=== PATIENT | female | born 1945 | race Caucasian/White ===

== ENCOUNTER 2018-10-07 13:55 | Emergency (ER) | payer MEDICARE ==
[2018-10-07 14:35] VITALS: BP 162/75
[2018-10-07] MEDS ORDERED: Albuterol 2.5 MG/3 ML NEB.SOL* (0.083%) INH ONE (15:31)
[2018-10-07] MEDS ORDERED: predniSONE TAB* 20 MG PO ONE (16:02)
[2018-10-07] MEDS ORDERED: Albuterol/Ipratropium NEB.SOL* Albuterol 2.5 MG/Ipratropium 0.5 MG 3 ML INH ONE (16:02)
--- NOTE | 2018-10-07 16:55 | UC ---
Respiratory Complaint HPI - HPI Summary HPI Summary: 73-year-old female presents with complaints of wheezing. States she has had some nasal congestion for the past several days but over the last 3 days has been noticing some progressively worsening wheezing. Occasional nonproductive cough No history of asthma or COPD. Denies fever, chills, ear pain, sore throat , chest pain, palpitations, diaphoresis, shortness of breath, nausea, or vomiting. - History of Current Complaint Chief Complaint: UCRespiratory Stated Complaint: WEEZINGCHEST CONGESTION Time Seen by Provider: 10/07/18 15:26 Hx Obtained From: Patient Pain Intensity: 3 - Allergies/Home Medications Allergies/Adverse Reactions: Allergies Allergy/AdvReac Type Severity Reaction Status Date / Time shellfish derived Allergy Severe Vomiting Verified 10/07/18 14:35 phenobarbital Allergy Agitation Verified 10/07/18 14:35 Home Medications: Home Medications Aspirin 81 mg PO DAILY 10/07/18 [History Confirmed 10/07/18] Aspirin 325 mg PO ONCE PRN 10/07/18 [History Confirmed 10/07/18] Calcium Carb/Vitamin D3/Vit K1 [Calcium + D Soft Chewable Tab] 1 tab PO DAILY [History Confirmed 10/07/18] Cyanocobalamin (Vitamin B-12) [Vitamin B12] 200 mg PO DAILY 10/07/18 [History Confirmed 10/07/18] Fluticasone Propionate [Flonase Allergy Relief] 1 spray INH DAILY 10/07/18 [ History Confirmed 10/07/18] Rosuvastatin Calcium [Crestor] 5 mg PO DAILY 10/07/18 [History Confirmed ] Ubidecarenone [Coq-10] 200 mg PO DAILY 10/07/18 [History Confirmed 10/07/18] guaiFENesin [Mucinex] 1 tab PO DAILY 10/07/18 [History Confirmed 10/07/18] PMH/Surg Hx/FS Hx/Imm Hx Endocrine History: Dyslipidemia Cardiovascular History: Cardiac Disease, Hypertension, Other - Valvular disease - Surgical History Surgical History: Yes Surgery Procedure, Year, and Place: valve replacement - Family History Known Family History: Positive: Non-Contributory - Social History Occupation: Retired Lives: With Family Alcohol Use: Occasionally Substance Use Type: None Smoking Status (MU): Never Smoked Tobacco Review of Systems All Other Systems Reviewed And Are Negative: Yes Constitutional: Negative: Fever, Chills Eyes: Negative: Drainage, Eye Redness ENT: Positive: Nasal Discharge, Sinus Congestion. Negative: Sore Throat, Ear Ache, Sinus Pain/Tenderness Respiratory: Positive: Cough. Negative: Shortness Of Breath Cardiovascular: Negative: Palpitations, Chest Pain Gastrointestinal: Negative: Abdominal Pain, Vomiting, Diarrhea, Nausea Genitourinary: Positive: Negative Musculoskeletal: Positive: Negative Neurological: Positive: Negative Is Patient Immunocompromised?: No Physical Exam - Summary Physical Exam Summary: GENERAL APPEARANCE: Alert and cooperative older adult female who appears to be in no acute distress. EYES: Conjunctiva clear. No drainage. EARS: External auditory canals and tympanic membranes clear, hearing grossly intact. NOSE: Moderate nasal congestion. No nasal discharge. THROAT: Pharynx normal. No tonsilar inflammation, swelling, exudate, or lesions. Uvula midline. NECK: Neck supple, non-tender without lymphadenopathy. CARDIAC: Normal S1 and S2. No S3, S4 or murmurs. Rhythm is regular. There is no peripheral edema, cyanosis or pallor. Extremities are warm and well perfused. Capillary refill is less than 2 seconds. Peripheral pulses intact. LUNGS: Diffuse bilateral wheezes with diminished breath sounds. ABDOMEN: Positive bowel sounds. Soft, nondistended, nontender. No guarding or rebound. No masses or hepatosplenomegally. MUSKULOSKELETAL: ROM intact to all extremities. No joint erythema or tenderness. Normal muscular development. Normal gait. SKIN: Skin normal color, texture and turgor with no lesions or eruptions. Triage Information Reviewed: Yes Vital Signs: Initial Vital Signs Temp 99 F 10/07/18 14:29 Pulse 73 10/07/18 14:29 Resp 18 10/07/18 14:29 BP 162/75 10/07/18 14:29 Pulse Ox 100 10/07/18 14:29 Vital Signs Reviewed: Yes Re-Evaluation - Re-Evaluation First Eval Re-Evaluation Time: 16:55 Change: Improved Comment: Patient reports breathing a little easier after the albuterol nebulizer. Continues to have diffuse bilateral wheezes throughout all stewart. Air exchange slightly improved. Jaspreet give second nebulizer treatment and a dose of prednisone. Second Eval Re-Evaluation Time: 16:45 Change: Improved Comment: Patient reports feels much better after second neb treatment. Continues to have a few scattered wheezes bilaterally. Air exchange much improved. Cough more productive. Will d/c home with antibiotics, short course prednisone, an albuterol inhaler, and cough suppressant. Respiratory Course/Dx - Course Course Of Treatment: 73-year-old female presents with complaints of wheezing. States she has had some nasal congestion for the past several days but over the last 3 days has been noticing some progressively worsening wheezing. Occasional nonproductive cough No history of asthma or COPD. Denies fever, chills, ear pain, sore throat , chest pain, palpitations, diaphoresis, shortness of breath, nausea, or vomiting. Afebrile. Hypertensive otherwise been stable. Patient had moderate nasal congestion and diffuse bilateral wheezes with diminished breath sounds. She was given an albuterol breathing treatment with some improvement in her symptoms however she continued to have diffuse wheezes therefore she was given a second DuoNeb treatment as well as a dose of prednisone 60 mg. Following the second nebulizer treatment the patient is reporting she was feeling much better. She continued to have a few scattered wheezes bilaterally but had much improved air exchange. With progressively worsening symptoms and development of wheezing I'm going to place her on an antibiotic for a URI. She was prescribed a course of azithromycin and given a prescription for prednisone 50 mg daily for 4 days starting tomorrow, and albuterol inhaler to use 2 puffs every 4-6 hours as needed for wheezing, and Tessalon Perles as needed for cough. She is to follow-up with her primary care provider in 5 days for recheck for symptoms. Anticipatory guidance and warning symptoms were reviewed with the patient. Verbalizes understanding and agrees with plan of care. - Differential Dx/Diagnosis Differential Diagnosis/HQI/PQRI: Bronchitis, Lower Resp Infection, Other - URI, RAD Provider Diagnosis: URI with cough and congestion, Reactive airway disease that is not asthma Discharge - Sign-Out/Discharge Documenting (check all that apply): Patient Departure All imaging exams completed and their final reports reviewed: No Studies - Discharge Plan Condition: Stable Disposition: HOME Prescriptions: Albuterol HFA INHALER* [Ventolin HFA Inhaler*] 2 puff INH Q4H PRN #1 mdi PRN Reason: Wheezing Azithromycin TAB* [Zithromax TAB (Z-CARMELA) 250 mg #6 tabs] 2 tab PO .TODAY, THEN 1 DAILY #1 carmela Benzonatate CAP* [Tessalon 100 MG CAP*] 100 mg PO TID PRN #21 cap PRN Reason: Cough predniSONE TAB* [Deltasone TAB*] 50 mg PO DAILY #4 tab Patient Education Materials: Upper Respiratory Infection (ED), Wheezing (ED) Referrals: Brown Donis, ANALYTICAL RESEARCH PROGRAM MANAGER [Primary Care Provider] - 5 Days Additional Instructions: Your history and exam are consistent with an upper respiratory infection. Considering the worsening of your symptoms we will treat you with an antibiotic. Start azithromycin 2 tabs today then 1 tab a day for next 4 days. Take prednisone 50 mg 1 tab daily for 4 days starting tomorrow. We gave you a dose in the clinic. Use the albuterol inhaler 2 puffs every 4-6 hours as needed for shortness of breath or wheezing. Take Tessalon Perles 1 cap every 8 hours as needed for cough. Continue to use fluticasone (Flonase) nasal spray 2 sprays each nostril once daily. Take over the counter acetaminophen (Tylenol) according to directions as needed for pain or fever. Use salt water gargles several times a day if you have a sore throat. You may also use Chloraseptic spray or Cepacol lonzenges according to directions which contain a numbing medication and can provide some temporary relief from your sore throat. Follow up with your primary care provider in 5 days for a recheck of your symptoms. Seek immediate medical attention in the emergency room if you have fever greater than 100.5 F despite taking acetaminophen, have chest pain, difficulty breathing, are unable to swallow, or have any worsening of symptoms. - Billing Disposition and Condition Condition: STABLE Disposition: Home - Attestation Statements Provider Attestation: Per institutional requirements, I have reviewed the chart, however, I was not consulted specifically or made aware of this patient by the midlevel provider. I did not personally evaluate, interact with , or disposition this patient.
== END 2018-10-07 17:10 | disposition home or self-care (01) ==
LOC: UCEAST 13:55
DX: J06.9 Acute upper respiratory infection, unspecified (principal); R05 Cough; R09.81 Nasal congestion; E78.5 Hyperlipidemia, unspecified; Z95.2 Presence of prosthetic heart valve; Z79.82 Long term (current) use of aspirin; Z88.8 Allergy status to other drugs, medicaments and biological substances; Z91.013 Allergy to seafood
CPT/HCPCS: 99213; A9270-GY; G0463; J7512

== ENCOUNTER 2019-05-08 16:01 | Emergency (ER) | payer MEDICARE ==
[2019-05-08 17:00] VITALS: BP 131/50
--- NOTE | 2019-05-08 17:02 | UC ---
Epistaxis Nasal HPI - HPI Summary HPI Summary: 73 yo female presents with head injury. She tells me that she had her hands full carrying in boxes to her house. She missed a step and tripped going forward. Landed on her knee and hit her face and left side of her head against a wall or railing nearby - unsure exactly what. No LOC. Ambulatory immediately following. Small abrasion to nose that was bleeding. States that tetanus is UTD. Has applied ice to the nose. Noticed a "goose-egg" to left frontal head while in the waiting room here. Currently denies headache, dizziness, difficulty breathing through nose, neck pain, vision change, n/v. - History of Current Complaint Chief Complaint: UCSkin Stated Complaint: NOSE INJURY Time Seen by Provider: 05/08/19 17:02 Hx Obtained From: Patient Onset/Duration: Sudden Onset Severity Initially: Moderate Severity Currently: Moderate Pain Intensity: 6 - Allergies/Home Medications Allergies/Adverse Reactions: Allergies Allergy/AdvReac Type Severity Reaction Status Date / Time shellfish derived Allergy Severe Vomiting Verified 05/08/19 17:00 phenobarbital Allergy Agitation Verified 05/08/19 17:00 PMH/Surg Hx/FS Hx/Imm Hx - Additional Past Medical History Additional PMH: Heart valve replacement Endocrine History: Dyslipidemia Respiratory History: Asthma - Surgical History Surgical History: Yes Surgery Procedure, Year, and Place: valve replacement - Family History Known Family History: Positive: Non-Contributory - Social History Lives: With Family Alcohol Use: Occasionally Substance Use Type: None Smoking Status (MU): Never Smoked Tobacco Review of Systems All Other Systems Reviewed And Are Negative: No Constitutional: Positive: Negative Skin: Positive: Other - Abrasion nose. Bump head Eyes: Positive: Negative ENT: Positive: Negative Respiratory: Positive: Negative Cardiovascular: Positive: Negative Gastrointestinal: Positive: Negative Genitourinary: Positive: Negative Motor: Positive: Negative Neurovascular: Positive: Negative Musculoskeletal: Positive: Negative Neurological: Positive: Negative Psychological: Positive: Negative Physical Exam - Summary Physical Exam Summary: GENERAL: NAD. WDWN. No pain distress. SKIN: NOSE: small superficial abrasion to nasal bridge. No active bleeding. Clean appearing. NTTP HEENT: Head: No raccoon eyes or battles sign. LEFT FRONTAL HEAD: 2.5cm area of hematoma and scant ecchymosis. Eyes: PERRLA. EOM intact. Ears: Hearing grossly normal. TMs intact, no bulging, erythema, or edema. No hemotympanum Nose: Nasal mucosa pink and moist. NTTP maxillary and frontal sinus. Throat: Posterior oropharynx without exudates, erythema, or tonsillar enlargement. Uvula midline. NECK: Supple. Nontender. FROM CHEST: CTAB. No r/r/w. No accessory muscle use. Breathing comfortably and in no distress. CV: RRR. Pulses intact. Brisk cap refill. MSK: FROM in B/L UEs and LEs with symmetric strength. NEURO: A&Ox3. 3 word recall, remote, recent memory, ability to follow 2-step directions, and attention intact. CN: II: Peripheral stewart intact. Vision normal. III, IV, : EOMI. No nystagmus. PERRLA. V: Sensations intact and symmetric. Opens mouth and clenches teeth. VII: No facial asymmetry. Forehead wrinkles. Grins, shuts eyes, frowns, puffs cheeks. VIII: Hearing intact to finger rub. IX, X: Swallows and coughs. Uvula midline. XI: Shrugs shoulders. Turns head against resistance. XII: No tongue deviation [id number]-ir-[id number] are intact. Gait with normal base. Romberg: maintains balance, no pronator drift. Normal speech. No facial drooping. PSYCH: Age appropriate behavior. Triage Information Reviewed: Yes Vital Signs: Initial Vital Signs Temp 97.0 F 05/08/19 16:55 Pulse 79 05/08/19 16:55 Resp 18 05/08/19 16:55 BP 131/50 05/08/19 16:55 Pulse Ox 100 05/08/19 16:55 Vital Signs Reviewed: Yes Diagnostics - Radiology Brain CT Radiology Interpretation Completed By: Radiologist Summary of Radiographic Findings: IMPRESSION: 1. NO EVIDENCE FOR ACUTE INTRACRANIAL ABNORMALITY. 2. PROBABLE FRACTURE OF THE LEFT NASAL BONE. Epistaxis Nasal Course/Dx - Course Course Of Treatment: Abrasion was cleansed with saline. CT as above. Discussed with pt and daughter with her. Advised to rest, ice, and take tylenol as directed for discomfort. Go to ED if experiences any red flag symptoms. - Differential Dx/Diagnosis Provider Diagnosis: Head injury Discharge ED - Sign-Out/Discharge Documenting (check all that apply): Patient Departure All imaging exams completed and their final reports reviewed: Yes - Discharge Plan Condition: Stable Disposition: HOME Patient Education Materials: Nasal Fracture (ED), Head Injury (ED) Referrals: Brown Donis NP [Primary Care Provider] - Additional Instructions: If you develop a fever, shortness of breath, chest pain, new or worsening symptoms - please call your PCP or go to the ED immediately. Rest and apply ice to your nose and head. May take tylenol as directed for discomfort. If you develop a severe headache, vision changes, nausea, vomiting, numbness, or weakness - please call 911 or go to the ER immediately - Billing Disposition and Condition Condition: STABLE Disposition: Home
== END 2019-05-08 18:20 | disposition home or self-care (01) ==
LOC: UCEAST 16:01
DX: S09.90XA Unspecified injury of head, initial encounter (principal); S00.31XA Abrasion of nose, initial encounter; J45.909 Unspecified asthma, uncomplicated; Z95.2 Presence of prosthetic heart valve; Z91.013 Allergy to seafood; Z88.8 Allergy status to other drugs, medicaments and biological substances; W01.198A Fall on same level from slipping, tripping and stumbling with subsequent striking against other object, initial encounter; Y92.009 Unspecified place in unspecified non-institutional (private) residence as the place of occurrence of the external cause
CPT/HCPCS: 70450; 99212; G0463

== ENCOUNTER 2019-12-09 16:35 | Inpatient (IN) ==
[2019-12-09] MEDS ORDERED: NS 0.9% 1000 ml BAG 1,000 ML IV ONE (16:44)
[2019-12-09 17:12] LABS: Hematocrit 23 % (35-47); Hemoglobin 6.6 g/dL (12.0-16.0); Mean Corpuscular HGB Conc 28 g/dL (31-36); Mean Corpuscular Hemoglobin 19 pg (27-31); Mean Corpuscular Volume 66 fL (80-97); Mean Platelet Volume 8.8 fL (7.4-10.4); Platelet Count 234 10^3/uL (150-450); Red Blood Count 3.53 10^6 /uL (3.70-4.87); Red Cell Distribution Width 25 % (10-15)
[2019-12-09 17:16] LABS: ALT 329 U/L (7-52); AST 361 U/L (13-39); Alkaline Phosphatase 128 U/L (34-104); Anion Gap 11 mmol/L (2-11); Blood Urea Nitrogen 30 mg/dL (6-24); CO2 Carbon Dioxide 17 mmol/L (22-32); Calcium 9.1 mg/dL (8.6-10.3); Chloride 98 mmol/L (101-111); Creatine Kinase 105 U/L (10-223); EGFR African American 60.8 (>60); EGFR Non-African American 50.3 (>60); Glucose 173 mg/dL (70-100); Potassium 4.5 mmol/L (3.5-5.0); Sodium 126 mmol/L (135-145)
[2019-12-09] MEDS ORDERED: Piperacillin/Tazobac ADVAN 3.375 GM in NS 0.9% 100 ml BAG 100 ML IVPB ONE (17:25)
[2019-12-09 17:33] LABS: Troponin I 0.26 ng/mL (<0.03)
[2019-12-09 17:34] LABS: Urine Appearance Cloudy; Urine Bilirubin Negative (Negative); Urine Blood 3+ (Negative); Urine Color Amber; Urine Glucose Negative (Negative); Urine Ketones Negative (Negative); Urine Nitrite Negative (Negative); Urine Protein 1+(30 mg/dL) (Negative); Urine Specific Gravity 1.019 (1.010-1.030); Urine Urobilinogen Negative (Negative)
[2019-12-09 17:34] LABS: ABS Basophils 0.1 10^3/ul (0-0.2); ABS Monocytes 0.6 10^3/ul (0-0.8); ABS Neutrophils 15.3 10^3/ul (1.5-7.7); ABS Nucleated RBC 0.1 10^3/ul; Eosinophil % 0.1 %; Nucleated Red Blood Cells % 0.7
[2019-12-09 17:36] LABS: Microcytosis 2+; Polychromasia 2+
[2019-12-09 17:39] LABS: Urine Bacteria Absent (Absent); Urine Granular Casts Present (Absent); Urine Red Blood Cell 2+(6-10/hpf) (Absent); Urine White Blood Cell Trace(0-5/hpf) (Absent)
[2019-12-09] MEDS ORDERED: NS 0.9% 1000 ml BAG 2,180 ML IV ONE (17:45)
[2019-12-09] MEDS ORDERED: Vancomycin 1,250 MG in NS 0.9% 250 ml 250 ML IVPB ONE (18:00)
[2019-12-09 18:05] LABS: Acetaminophen < 15 mcg/mL
[2019-12-09] MEDS ORDERED: Propofol 10 mg/ml 100 ML BTL 100 ML IV ONE (18:48)
[2019-12-09] MEDS ORDERED: Etomidate 20 mg/10 ml 2 MG/ML 10 ml VIAL IV ONE ×2 (18:49→19:44)
[2019-12-09] MEDS ORDERED: Succinylcholine 200 mg VIAL 20 mg/ml 10 ml VIAL (200 mg) IV ONE ×2 (18:49→19:44)
[2019-12-09] MEDS ORDERED: Etomidate 40 mg/20 ml (2 MG/ML) 20 ml VIAL (40 mg) ONE (19:09)
[2019-12-09] MEDS ORDERED: Rocuronium 50 mg VIAL 10 mg/ml 5 ml VIAL (50 mg) IV ONE (19:12)
[2019-12-09] MEDS ORDERED: Rocuronium 50 mg VIAL 10 mg/ml 5 ml VIAL (50 mg) ONE (19:15)
[2019-12-09] MEDS ORDERED: Succinylcholine 200 mg VIAL 20 mg/ml 10 ml VIAL (200 mg) ONE (19:15)
[2019-12-09] MEDS: Midazolam 2 mg/2 ml VIAL 1 mg/ml 2 ml VIAL (2 mg) IV SLOW PU ONE ×3 (19:35→20:40)
[2019-12-09] MEDS ORDERED: Propofol 10 mg/ml 100 ML BTL 100 ML IV SCH (20:00)
[2019-12-09] MEDS ORDERED: NS 0.9% 1000 ml BAG 1,000 ML IV SCH (20:00)
[2019-12-09] MEDS ORDERED: Midazolam 2 mg/2 ml VIAL 1 mg/ml 2 ml VIAL (2 mg) IV SLOW PU ONE (20:26)
[2019-12-09] MEDS ORDERED: Iodixanol (CONTRAST) 320 MG/ML 100 ML SDV IV ONE (20:28)
[2019-12-09] MEDS ORDERED: Norepinephrine 16MCG/ML IVPRE 4,000 MCG/250 ML BAG IV ONE (20:32)
[2019-12-09] MEDS: Norepinephrine 16MCG/ML IVPRE 4,000 MCG/250 ML BAG IV SCH (20:37)
[2019-12-09 21:26] LABS: ABS Monocytes 0.6 10^3/ul (0-0.8); ABS Neutrophils 15.7 10^3/ul (1.5-7.7); ABS Nucleated RBC 0.2 10^3/ul; Hematocrit 20 % (35-47); Hemoglobin 5.8 g/dL (12.0-16.0); Lymphocyte % 5.6 %; Mean Corpuscular HGB Conc 29 g/dL (31-36); Mean Corpuscular Hemoglobin 19 pg (27-31); Mean Corpuscular Volume 65 fL (80-97); Mean Platelet Volume 8.5 fL (7.4-10.4); Platelet Count 252 10^3/uL (150-450); Red Blood Count 3.01 10^6 /uL (3.70-4.87); Red Cell Distribution Width 23 % (10-15); White Blood Count 17.7 10^3/uL (3.5-10.8)
[2019-12-09 21:31] LABS: INR 1.63 (0.82-1.09)
[2019-12-09 21:40] LABS: AST 766 U/L (13-39); Albumin 2.7 g/dL (3.2-5.2); Alkaline Phosphatase 167 U/L (34-104); Anion Gap 9 mmol/L (2-11); BUN/Creatinine Ratio 28.1 (8-20); Blood Urea Nitrogen 32 mg/dL (6-24); CO2 Carbon Dioxide 21 mmol/L (22-32); Calcium 8.4 mg/dL (8.6-10.3); Chloride 98 mmol/L (101-111); EGFR African American 56.5 (>60); EGFR Non-African American 46.7 (>60); Globulin 2.6 g/dL (2-4); Glucose 182 mg/dL (70-100); Potassium 4.2 mmol/L (3.5-5.0); Sodium 128 mmol/L (135-145); Total Protein 5.3 g/dL (6.4-8.9)
[2019-12-09] MEDS ORDERED: Phytonadione IV (Adult) 10 MG/ML 1 ML AMP IV ONE (21:48)
[2019-12-09 21:56] LABS: Troponin I 0.34 ng/mL (<0.03)
[2019-12-09] MEDS ORDERED: Lactated Ringers 1000 ml BAG 500 ML IV ONE (22:13)
[2019-12-09] MEDS: Propofol 10 mg/ml 100 ML BTL 100 ML IV SCH (22:29)
[2019-12-09 22:47] LABS: Ammonia 62 mcmol/L (16-53)
[2019-12-09 22:53] LABS: BNP > 1300 pg/mL (<=100)
[2019-12-09] MEDS: Lactated Ringers 1000 ml BAG 1,000 ML IV SCH (22:55)
[2019-12-09] MEDS ORDERED: Amikacin IV 500 MG/2 ML VIAL IVPB ONE (22:59)
[2019-12-09] MEDS ORDERED: Phytonadione 10 mg in 50 mL NS over 30 min IV ONE (23:00)
[2019-12-09 23:27] LABS: ALT 663 U/L (7-52)
[2019-12-09] MEDS ORDERED: GENTAMICIN ADULT IVPB ONE (23:30)
[2019-12-09] MEDS ORDERED: NS 0.9% IVPB ONE (23:30)
[2019-12-09 23:52] LABS: Corrected Retic Count 2.5 % (0.5-1.5); Hematocrit for Retic CNT 20 % (35-47); Immature Retic Fraction 0.62; RBC Retic Count 3.01 10^6/uL (3.70-4.87)
[2019-12-10] MEDS: Chlorhexidine MOUTHWASH 0.12% 15 ML UDC SWISH SPIT SCH ×7 (00:01→21:09)
[2019-12-10 00:02] LABS: LDH 1175 U/L (140-271); Total Iron Binding Capacity 325 mcg/dL (250-450); Transferrin 232 mg/dL (203-362)
[2019-12-10] MEDS: ZOSYN 3.375 GM Q8H per EXTENDED INFUSION IV SCH ×4 (00:02→21:09)
[2019-12-10 00:29] LABS: Ferritin 37.8 ng/mL (11-307)
[2019-12-10 00:33] LABS: Folate > 20.00 ng/mL (>3.99); Vitamin B12 1367 pg/mL (180-914)
[2019-12-10 00:34] LABS: % Iron Saturation 6 % (15-55); Iron < 20 ug/dL (50-212); Unsaturated Iron Binding < 310 ug/dL
[2019-12-10] MEDS ORDERED: Pantoprazole VIAL 40 MG VIAL IV ONE (01:00)
[2019-12-10] MEDS: Lactated Ringers 1000 ml BAG 1,000 ML IV SCH ×2 (04:04→18:11)
[2019-12-10] MEDS: Propofol* 20 ML VIAL - FOR IV LINE PRIMING ONLY SCH ×3 (05:39→21:09)
[2019-12-10] MEDS: Propofol 10 mg/ml 100 ML BTL 100 ML IV SCH ×2 (05:39→21:09)
[2019-12-10] MEDS: Norepinephrine 16MCG/ML IVPRE 4,000 MCG/250 ML BAG IV SCH ×3 (05:47→21:43)
[2019-12-10 06:34] LABS: ABS Basophils 0.1 10^3/ul (0-0.2); ABS Lymphocytes 1.1 10^3/ul (1.0-4.8); ABS Monocytes 0.4 10^3/ul (0-0.8); ABS Neutrophils 8.6 10^3/ul (1.5-7.7); ABS Nucleated RBC 0.1 10^3/ul; Hematocrit 24 % (35-47); Hemoglobin 7.5 g/dL (12.0-16.0); Lymphocyte % 10.6 %; Mean Corpuscular HGB Conc 31 g/dL (31-36); Mean Corpuscular Hemoglobin 22 pg (27-31); Mean Corpuscular Volume 70 fL (80-97); Mean Platelet Volume 8.6 fL (7.4-10.4); Nucleated Red Blood Cells % 0.7; Platelet Count 163 10^3/uL (150-450); Red Blood Count 3.42 10^6 /uL (3.70-4.87); Red Cell Distribution Width 25 % (10-15); White Blood Count 10.2 10^3/uL (3.5-10.8)
[2019-12-10 06:38] LABS: INR 1.41 (0.82-1.09)
[2019-12-10 06:49] LABS: AST 697 U/L (13-39); Albumin 2.4 g/dL (3.2-5.2); Alkaline Phosphatase 133 U/L (34-104); Anion Gap 8 mmol/L (2-11); BUN/Creatinine Ratio 28.3 (8-20); Blood Urea Nitrogen 30 mg/dL (6-24); CO2 Carbon Dioxide 21 mmol/L (22-32); Calcium 8.3 mg/dL (8.6-10.3); Chloride 101 mmol/L (101-111); EGFR African American 61.5 (>60); EGFR Non-African American 50.8 (>60); Globulin 2.4 g/dL (2-4); Glucose 88 mg/dL (70-100); Magnesium 1.8 mg/dL (1.9-2.7); Phosphorus 3.6 mg/dL (2.5-5.0); Potassium 3.8 mmol/L (3.5-5.0); Sodium 130 mmol/L (135-145); Total Protein 4.8 g/dL (6.4-8.9)
[2019-12-10 06:57] LABS: Troponin I 0.43 ng/mL (<0.03)
[2019-12-10 07:05] LABS: ALT 716 U/L (7-52)
[2019-12-10] MEDS ORDERED: Magnesium Sulfate 2 gm BAG 2 GM/50 ML BAG IVPB ONE ×2 (07:25→11:20)
[2019-12-10] MEDS ORDERED: D5LR 20 MEQ KCL 1000 ml BAG 1,000 ML IV SCH (08:00)
[2019-12-10] MEDS: Pantoprazole VIAL 40 MG VIAL IV SCH (08:30)
[2019-12-10] MEDS ORDERED: Rocuronium 50 mg VIAL 10 mg/ml 5 ml VIAL (50 mg) IV ONE ×2 (10:05→13:57)
[2019-12-10] MEDS ORDERED: Rocuronium 50 mg VIAL 10 mg/ml 5 ml VIAL (50 mg) ONE (10:06)
[2019-12-10 11:35] LABS: ABS Basophils 0.1 10^3/ul (0-0.2); ABS Lymphocytes 1.5 10^3/ul (1.0-4.8); ABS Monocytes 0.5 10^3/ul (0-0.8); ABS Neutrophils 13.4 10^3/ul (1.5-7.7); ABS Nucleated RBC 0.1 10^3/ul; Eosinophil % 0.1 %; Hematocrit 27 % (35-47); Hemoglobin 8.2 g/dL (12.0-16.0); Lymphocyte % 9.6 %; Mean Corpuscular HGB Conc 31 g/dL (31-36); Mean Corpuscular Hemoglobin 21 pg (27-31); Mean Corpuscular Volume 70 fL (80-97); Mean Platelet Volume 8.5 fL (7.4-10.4); Nucleated Red Blood Cells % 0.5; Platelet Count 221 10^3/uL (150-450); Red Blood Count 3.86 10^6 /uL (3.70-4.87); Red Cell Distribution Width 25 % (10-15); White Blood Count 15.5 10^3/uL (3.5-10.8)
[2019-12-10 11:50] LABS: Anion Gap 5 mmol/L (2-11); BUN/Creatinine Ratio 27.5 (8-20); Blood Urea Nitrogen 28 mg/dL (6-24); CO2 Carbon Dioxide 23 mmol/L (22-32); Calcium 8.3 mg/dL (8.6-10.3); Chloride 103 mmol/L (101-111); EGFR African American 64.3 (>60); EGFR Non-African American 53.1 (>60); Glucose 145 mg/dL (70-100); Magnesium 2.4 mg/dL (1.9-2.7); Potassium 3.8 mmol/L (3.5-5.0); Sodium 131 mmol/L (135-145)
[2019-12-10 11:56] LABS: Microcytosis 1+; Polychromasia 1+
[2019-12-10 12:02] LABS: Troponin I 0.46 ng/mL (<0.03)
[2019-12-10] MEDS ORDERED: Dextrose 50% Syringe 50 ml 25 GM/50 ML SYRINGE IV PUSH PRN (17:05)
[2019-12-10 17:38] LABS: Hematocrit 30 % (35-47); Hemoglobin 9.1 g/dL (12.0-16.0); Mean Corpuscular HGB Conc 31 g/dL (31-36); Mean Corpuscular Hemoglobin 22 pg (27-31); Mean Corpuscular Volume 73 fL (80-97); Red Blood Count 4.09 10^6 /uL (3.70-4.87); Red Cell Distribution Width 26 % (10-15); White Blood Count 12.9 10^3/uL (3.5-10.8)
[2019-12-10 18:34] LABS: Platelet Count Platelets clumped. 10^3/uL (150-450)
[2019-12-10 18:41] LABS: ABS Lymphocytes 1.3 10^3/ul (1.0-4.8); ABS Monocytes 0.5 10^3/ul (0-0.8); ABS Neutrophils 11.1 10^3/ul (1.5-7.7); ABS Nucleated RBC 0.1 10^3/ul; Eosinophil % 0.1 %; Microcytosis 1+; Nucleated Red Blood Cells % 0.6; Polychromasia 1+
[2019-12-11] MEDS: Chlorhexidine MOUTHWASH 0.12% 15 ML UDC SWISH SPIT SCH ×2 (02:45→05:26)
[2019-12-11] MEDS: Lactated Ringers 1000 ml BAG 1,000 ML IV SCH (04:15)
[2019-12-11] MEDS: ZOSYN 3.375 GM Q8H per EXTENDED INFUSION IV SCH (05:25)
[2019-12-11 05:49] LABS: Albumin 2.1 g/dL (3.2-5.2); Calcium 8.1 mg/dL (8.6-10.3); Magnesium 2.2 mg/dL (1.9-2.7); Potassium 3.5 mmol/L (3.5-5.0); Total Bilirubin 1.1 mg/dL (0.2-1.0)
[2019-12-11 05:55] LABS: Albumin/Globulin Ratio 0.9 (1-3); BUN/Creatinine Ratio 24.7 (8-20); EGFR African American 71.5 (>60); EGFR Non-African American 59.1 (>60); Globulin 2.4 g/dL (2-4); Phosphorus 2.8 mg/dL (2.5-5.0); Total Protein 4.5 g/dL (6.4-8.9)
[2019-12-11] MEDS: Propofol 10 mg/ml 100 ML BTL 100 ML IV SCH (06:06)
[2019-12-11 06:15] LABS: ABS Lymphocytes 0.8 10^3/ul (1.0-4.8); ABS Monocytes 0.3 10^3/ul (0-0.8); ABS Neutrophils 6.9 10^3/ul (1.5-7.7); Eosinophil % 0.1 %; Hematocrit 28 % (35-47); Hemoglobin 8.9 g/dL (12.0-16.0); Lymphocyte % 10.2 %; Mean Corpuscular HGB Conc 32 g/dL (31-36); Mean Corpuscular Hemoglobin 23 pg (27-31); Mean Corpuscular Volume 70 fL (80-97); Mean Platelet Volume 8.4 fL (7.4-10.4); Nucleated Red Blood Cells % 0.2; Platelet Count 127 10^3/uL (150-450); Red Blood Count 3.92 10^6 /uL (3.70-4.87); Red Cell Distribution Width 25 % (10-15)
[2019-12-11] MEDS: Pantoprazole VIAL 40 MG VIAL IV SCH (08:14)
[2019-12-11] MEDS ORDERED: KCL 20 MEQ/100 ML IVPREMIX 20 MEQ/100 ML BAG IV SCH (10:00)
[2019-12-11] MEDS ORDERED: Rocuronium 50 mg VIAL 10 mg/ml 5 ml VIAL (50 mg) IV ONE ×2 (10:04→10:08)
[2019-12-11] MEDS ORDERED: Rocuronium 50 mg VIAL 10 mg/ml 5 ml VIAL (50 mg) ONE (10:09)
[2019-12-11 11:01] VITALS: BP 108/73
[2019-12-15 10:58] LABS: Methylmalonic Acid 0.35 nmol/mL (<=0.40)
== END 2019-12-11 11:00 | disposition short-term general hospital (02) | DRG 871 ==
LOC: ED 16:35 → ICU 19:49
PROVIDERS: ADMIT Nurse Practitioner Adult Health; ATTEND Internal Medicine

== ENCOUNTER 2020-01-15 08:44 | Inpatient (IN) ==
[2020-01-15] MEDS ORDERED: Senna TAB 8.6 mg TAB PO PRN (13:32)
[2020-01-15] MEDS ORDERED: Albuterol HFA INHALER 8 gm MDI INH PRN (13:50)
[2020-01-15] MEDS ORDERED: PENICILLIN POTASSIUM IVPB SCH ×3 (14:00→15:30)
[2020-01-15] MEDS ORDERED: NS 0.9% IVPB SCH ×3 (14:00→15:30)
[2020-01-15] MEDS: PENICILLIN POTASSIUM IVPB SCH ×2 (16:51→21:18)
[2020-01-15] MEDS: NS 0.9% IVPB SCH ×2 (16:51→21:18)
[2020-01-15] MEDS: Heparin 5000 UNITS/ML 1 mL VIAL SUBCUT SCH (21:17)
[2020-01-16] MEDS: NS 0.9% IVPB SCH ×6 (01:41→21:06)
[2020-01-16] MEDS: PENICILLIN POTASSIUM IVPB SCH ×6 (01:41→21:06)
[2020-01-16] MEDS: Heparin 5000 UNITS/ML 1 mL VIAL SUBCUT SCH ×3 (05:30→21:00)
[2020-01-16] MEDS: Aspirin EC 81 mg TAB.EC (enteric coated) PO SCH (08:40)
[2020-01-17] MEDS: NS 0.9% IVPB SCH ×6 (02:45→21:45)
[2020-01-17] MEDS: PENICILLIN POTASSIUM IVPB SCH ×6 (02:45→21:45)
[2020-01-17] MEDS: Heparin 5000 UNITS/ML 1 mL VIAL SUBCUT SCH ×3 (05:55→21:47)
[2020-01-17] MEDS: Aspirin EC 81 mg TAB.EC (enteric coated) PO SCH (08:32)
[2020-01-18] MEDS: PENICILLIN POTASSIUM IVPB SCH ×6 (02:18→22:18)
[2020-01-18] MEDS: NS 0.9% IVPB SCH ×6 (02:18→22:18)
[2020-01-18] MEDS: Heparin 5000 UNITS/ML 1 mL VIAL SUBCUT SCH ×3 (05:31→22:18)
[2020-01-18 06:05] LABS: ABS Basophils 0.1 10^3/ul (0-0.2); ABS Lymphocytes 0.9 10^3/ul (1.0-4.8); ABS Monocytes 0.5 10^3/ul (0-0.8); ABS Neutrophils 4.2 10^3/ul (1.5-7.7); Hematocrit 28 % (35-47); Hemoglobin 9.1 g/dL (12.0-16.0); Lymphocyte % 15.5 %; Mean Corpuscular HGB Conc 33 g/dL (31-36); Mean Corpuscular Hemoglobin 29 pg (27-31); Mean Corpuscular Volume 89 fL (80-97); Mean Platelet Volume 7.6 fL (7.4-10.4); Platelet Count 355 10^3/uL (150-450); Red Cell Distribution Width 19 % (10-15); White Blood Count 5.6 10^3/uL (3.5-10.8)
[2020-01-18 06:13] LABS: Albumin 3.1 g/dL (3.2-5.2); Albumin/Globulin Ratio 1.1 (1-3); BUN/Creatinine Ratio 27.2 (8-20); Calcium 9.5 mg/dL (8.6-10.3); EGFR African American 72.4 (>60); EGFR Non-African American 59.8 (>60); Globulin 2.7 g/dL (2-4); Total Bilirubin 0.3 mg/dL (0.2-1.0); Total Protein 5.8 g/dL (6.4-8.9)
[2020-01-18] MEDS: Aspirin EC 81 mg TAB.EC (enteric coated) PO SCH (09:59)
[2020-01-18] MEDS: Lidocaine 2% JELLY 6 ML TOPICAL PRN ×2 (11:00→20:50)
[2020-01-18] MEDS ORDERED: Alteplase (CATHFLO) 2 MG VIAL IV ONE (13:27)
[2020-01-18 19:26] LABS: Urine Appearance Cloudy; Urine Bilirubin Negative (Negative); Urine Blood 2+ (Negative); Urine Color Yellow; Urine Glucose Negative (Negative); Urine Ketones Negative (Negative); Urine Nitrite Negative (Negative); Urine Protein Negative (Negative); Urine Specific Gravity 1.008 (1.010-1.030); Urine Urobilinogen Negative (Negative)
[2020-01-18 19:33] LABS: Urine Bacteria 1+ (Absent); Urine Red Blood Cell 3+(>10/hpf) (Absent); Urine Squamous Epithelial Cell Present (Absent); Urine White Blood Cell 2+(11-20/hpf) (Absent)
[2020-01-19] MEDS: NS 0.9% IVPB SCH ×6 (01:44→21:36)
[2020-01-19] MEDS: PENICILLIN POTASSIUM IVPB SCH ×6 (01:44→21:36)
[2020-01-19] MEDS: Heparin 5000 UNITS/ML 1 mL VIAL SUBCUT SCH ×3 (05:40→21:40)
[2020-01-19] MEDS: Lidocaine 2% JELLY 6 ML TOPICAL PRN ×2 (08:46→19:13)
[2020-01-19] MEDS: Aspirin EC 81 mg TAB.EC (enteric coated) PO SCH (09:06)
[2020-01-20] MEDS: NS 0.9% IVPB SCH ×6 (01:45→21:38)
[2020-01-20] MEDS: PENICILLIN POTASSIUM IVPB SCH ×6 (01:45→21:38)
[2020-01-20] MEDS: Heparin 5000 UNITS/ML 1 mL VIAL SUBCUT SCH ×3 (05:40→21:38)
[2020-01-20] MEDS: Aspirin EC 81 mg TAB.EC (enteric coated) PO SCH (08:36)
[2020-01-20] MEDS: Lidocaine 2% JELLY 6 ML TOPICAL PRN (08:38)
[2020-01-21] MEDS: PENICILLIN POTASSIUM IVPB SCH ×6 (00:52→21:37)
[2020-01-21] MEDS: NS 0.9% IVPB SCH ×6 (00:52→21:37)
[2020-01-21] MEDS: Heparin 5000 UNITS/ML 1 mL VIAL SUBCUT SCH ×3 (05:38→21:37)
[2020-01-21] MEDS: Lidocaine 2% JELLY 6 ML TOPICAL PRN ×3 (08:08→21:47)
[2020-01-21] MEDS: Aspirin EC 81 mg TAB.EC (enteric coated) PO SCH (09:02)
[2020-01-21] MEDS: Sulfamethox/Trimethoprim DS TAB 800/160 mg PO SCH (20:31)
[2020-01-22] MEDS: Heparin 5000 UNITS/ML 1 mL VIAL SUBCUT SCH ×3 (04:41→21:00)
[2020-01-22] MEDS: Aspirin EC 81 mg TAB.EC (enteric coated) PO SCH (08:01)
[2020-01-22] MEDS: Sulfamethox/Trimethoprim DS TAB 800/160 mg PO SCH ×2 (08:02→20:09)
[2020-01-22] MEDS: Lidocaine 2% JELLY 6 ML TOPICAL PRN (08:33)
[2020-01-23] MEDS: Heparin 5000 UNITS/ML 1 mL VIAL SUBCUT SCH ×3 (06:42→21:20)
[2020-01-23] MEDS: Sulfamethox/Trimethoprim DS TAB 800/160 mg PO SCH ×2 (10:25→20:26)
[2020-01-23] MEDS: Aspirin EC 81 mg TAB.EC (enteric coated) PO SCH (10:25)
[2020-01-23] MEDS ORDERED: Influenza VAC *QUAD* 2020-21* 0.5 ML SYRINGE IM ONE (12:00)
[2020-01-23] MEDS: GLYCERIN OTIC PRN (20:45)
[2020-01-23] MEDS: ISOPROPYL ALCOHOL OTIC PRN (20:45)
[2020-01-24] MEDS: Heparin 5000 UNITS/ML 1 mL VIAL SUBCUT SCH ×3 (06:14→21:57)
[2020-01-24] MEDS: Aspirin EC 81 mg TAB.EC (enteric coated) PO SCH (09:47)
[2020-01-24] MEDS: Sulfamethox/Trimethoprim DS TAB 800/160 mg PO SCH ×2 (09:47→20:18)
[2020-01-24] MEDS: Magnesium Hydroxide LIQ 30 ML UDC PO PRN (13:30)
[2020-01-24] MEDS: ISOPROPYL ALCOHOL OTIC PRN (18:28)
[2020-01-24] MEDS: GLYCERIN OTIC PRN (18:28)
[2020-01-25] MEDS: Heparin 5000 UNITS/ML 1 mL VIAL SUBCUT SCH ×3 (05:33→21:59)
[2020-01-25 05:38] LABS: ABS Basophils 0.1 10^3/ul (0-0.2); ABS Eosinophils 0.1 10^3/ul (0-0.6); ABS Monocytes 0.5 10^3/ul (0-0.8); ABS Neutrophils 2.5 10^3/ul (1.5-7.7); Eosinophil % 2.7 %; Hematocrit 28 % (35-47); Hemoglobin 9.4 g/dL (12.0-16.0); Lymphocyte % 23.1 %; Mean Corpuscular HGB Conc 34 g/dL (31-36); Mean Corpuscular Hemoglobin 31 pg (27-31); Mean Corpuscular Volume 91 fL (80-97); Mean Platelet Volume 7.2 fL (7.4-10.4); Platelet Count 272 10^3/uL (150-450); Red Blood Count 3.04 10^6 /uL (3.70-4.87); Red Cell Distribution Width 19 % (10-15); White Blood Count 4.2 10^3/uL (3.5-10.8)
[2020-01-25 06:04] LABS: Albumin 3.4 g/dL (3.2-5.2); Albumin/Globulin Ratio 1.1 (1-3); BUN/Creatinine Ratio 22.4 (8-20); EGFR African American 46.9 (>60); EGFR Non-African American 38.8 (>60); Potassium 4.7 mmol/L (3.5-5.0); Total Bilirubin 0.3 mg/dL (0.2-1.0); Total Protein 6.4 g/dL (6.4-8.9)
[2020-01-25] MEDS: Aspirin EC 81 mg TAB.EC (enteric coated) PO SCH (07:40)
[2020-01-25] MEDS: Sulfamethox/Trimethoprim DS TAB 800/160 mg PO SCH ×2 (07:40→20:09)
[2020-01-25] MEDS ORDERED: Influenza VAC *QUAD* 2020-21* 0.5 ML SYRINGE IM ONE (09:00)
[2020-01-25] MEDS: Lidocaine 2% JELLY 6 ML TOPICAL PRN (09:00)
[2020-01-25] MEDS: Magnesium Hydroxide LIQ 30 ML UDC PO PRN (09:19)
[2020-01-25] MEDS: GLYCERIN OTIC PRN (16:07)
[2020-01-25] MEDS: ISOPROPYL ALCOHOL OTIC PRN (16:07)
[2020-01-25] MEDS: Senna TAB 8.6 mg TAB PO SCH (20:17)
[2020-01-26] MEDS: Heparin 5000 UNITS/ML 1 mL VIAL SUBCUT SCH ×3 (06:56→21:16)
[2020-01-26] MEDS: Lidocaine 2% JELLY 6 ML TOPICAL PRN (08:48)
[2020-01-26] MEDS: Aspirin EC 81 mg TAB.EC (enteric coated) PO SCH (08:49)
[2020-01-26] MEDS: Sulfamethox/Trimethoprim DS TAB 800/160 mg PO SCH (08:49)
[2020-01-26] MEDS ORDERED: Influenza VAC *QUAD* 2020-21* 0.5 ML SYRINGE IM ONE (09:00)
[2020-01-26] MEDS: Senna TAB 8.6 mg TAB PO SCH (20:24)
[2020-01-27] MEDS: Heparin 5000 UNITS/ML 1 mL VIAL SUBCUT SCH ×3 (06:20→21:49)
[2020-01-27] MEDS: Lidocaine 2% JELLY 6 ML TOPICAL PRN (08:51)
[2020-01-27] MEDS: Aspirin EC 81 mg TAB.EC (enteric coated) PO SCH (08:59)
[2020-01-27] MEDS ORDERED: Influenza VAC *QUAD* 2020-21* 0.5 ML SYRINGE IM ONE (09:00)
[2020-01-27] MEDS: Senna TAB 8.6 mg TAB PO SCH (21:01)
[2020-01-27] MEDS: GLYCERIN OTIC PRN (23:44)
[2020-01-27] MEDS: ISOPROPYL ALCOHOL OTIC PRN (23:44)
[2020-01-28] MEDS: Heparin 5000 UNITS/ML 1 mL VIAL SUBCUT SCH ×3 (06:02→21:17)
[2020-01-28] MEDS ORDERED: Influenza VAC *QUAD* 2020-21* 0.5 ML SYRINGE IM ONE (09:00)
[2020-01-28] MEDS: Lidocaine 2% JELLY 6 ML TOPICAL PRN (09:14)
[2020-01-28] MEDS: Aspirin EC 81 mg TAB.EC (enteric coated) PO SCH (09:14)
[2020-01-28] MEDS: GLYCERIN OTIC PRN ×2 (09:18→21:15)
[2020-01-28] MEDS: ISOPROPYL ALCOHOL OTIC PRN ×2 (09:18→21:15)
[2020-01-28] MEDS: Senna TAB 8.6 mg TAB PO SCH (20:17)
[2020-01-29] MEDS: Heparin 5000 UNITS/ML 1 mL VIAL SUBCUT SCH ×3 (05:40→21:19)
[2020-01-29] MEDS ORDERED: Influenza VAC *QUAD* 2020-21* 0.5 ML SYRINGE IM ONE (09:00)
[2020-01-29] MEDS: Aspirin EC 81 mg TAB.EC (enteric coated) PO SCH (09:00)
[2020-01-29] MEDS: Senna TAB 8.6 mg TAB PO SCH (21:17)
[2020-01-29] MEDS: ISOPROPYL ALCOHOL OTIC PRN (21:19)
[2020-01-29] MEDS: GLYCERIN OTIC PRN (21:19)
[2020-01-30] MEDS: Heparin 5000 UNITS/ML 1 mL VIAL SUBCUT SCH ×3 (06:03→21:23)
[2020-01-30] MEDS: Aspirin EC 81 mg TAB.EC (enteric coated) PO SCH (08:19)
[2020-01-30] MEDS: Senna TAB 8.6 mg TAB PO SCH (21:18)
[2020-01-31] MEDS: Heparin 5000 UNITS/ML 1 mL VIAL SUBCUT SCH ×3 (06:48→21:01)
[2020-01-31] MEDS: Aspirin EC 81 mg TAB.EC (enteric coated) PO SCH (09:18)
[2020-01-31] MEDS ORDERED: Senna TAB 8.6 mg TAB PO PRN (09:46)
[2020-02-01] MEDS: Heparin 5000 UNITS/ML 1 mL VIAL SUBCUT SCH ×3 (06:13→21:04)
[2020-02-01 06:50] LABS: ABS Basophils 0.1 10^3/ul (0-0.2); ABS Eosinophils 0.4 10^3/ul (0-0.6); ABS Monocytes 0.4 10^3/ul (0-0.8); ABS Neutrophils 3.1 10^3/ul (1.5-7.7); Eosinophil % 7.4 %; Hematocrit 29 % (35-47); Hemoglobin 9.7 g/dL (12.0-16.0); Lymphocyte % 20.5 %; Mean Corpuscular HGB Conc 33 g/dL (31-36); Mean Corpuscular Hemoglobin 31 pg (27-31); Mean Corpuscular Volume 92 fL (80-97); Mean Platelet Volume 7.3 fL (7.4-10.4); Platelet Count 257 10^3/uL (150-450); Red Blood Count 3.16 10^6 /uL (3.70-4.87); Red Cell Distribution Width 19 % (10-15)
[2020-02-01 07:17] LABS: Albumin 3.7 g/dL (3.2-5.2); Albumin/Globulin Ratio 1.3 (1-3); BUN/Creatinine Ratio 36.4 (8-20); EGFR African American 43.5 (>60); Globulin 2.9 g/dL (2-4); Potassium 4.5 mmol/L (3.5-5.0); Total Bilirubin 0.3 mg/dL (0.2-1.0); Total Protein 6.6 g/dL (6.4-8.9)
[2020-02-01] MEDS: Lidocaine 2% JELLY 6 ML TOPICAL PRN (08:43)
[2020-02-01] MEDS: Aspirin EC 81 mg TAB.EC (enteric coated) PO SCH (10:05)
[2020-02-01] MEDS: ISOPROPYL ALCOHOL OTIC PRN (21:05)
[2020-02-01] MEDS: GLYCERIN OTIC PRN (21:05)
[2020-02-02] MEDS: Heparin 5000 UNITS/ML 1 mL VIAL SUBCUT SCH ×3 (05:58→20:20)
[2020-02-02] MEDS: Aspirin EC 81 mg TAB.EC (enteric coated) PO SCH (09:19)
[2020-02-03] MEDS: Heparin 5000 UNITS/ML 1 mL VIAL SUBCUT SCH ×3 (05:30→20:38)
[2020-02-03] MEDS: Aspirin EC 81 mg TAB.EC (enteric coated) PO SCH (09:12)
[2020-02-03] MEDS: ISOPROPYL ALCOHOL OTIC PRN (20:06)
[2020-02-03] MEDS: GLYCERIN OTIC PRN (20:06)
[2020-02-04] MEDS: Heparin 5000 UNITS/ML 1 mL VIAL SUBCUT SCH ×3 (05:26→21:23)
[2020-02-04 05:41] LABS: ABS Basophils 0.1 10^3/ul (0-0.2); ABS Eosinophils 0.6 10^3/ul (0-0.6); ABS Lymphocytes 0.9 10^3/ul (1.0-4.8); ABS Monocytes 0.5 10^3/ul (0-0.8); ABS Neutrophils 3.8 10^3/ul (1.5-7.7); Eosinophil % 10.1 %; Hematocrit 29 % (35-47); Hemoglobin 9.6 g/dL (12.0-16.0); Lymphocyte % 15.5 %; Mean Corpuscular HGB Conc 33 g/dL (31-36); Mean Corpuscular Hemoglobin 31 pg (27-31); Mean Corpuscular Volume 92 fL (80-97); Mean Platelet Volume 7.4 fL (7.4-10.4); Platelet Count 263 10^3/uL (150-450); Red Blood Count 3.13 10^6 /uL (3.70-4.87); Red Cell Distribution Width 18 % (10-15); White Blood Count 5.8 10^3/uL (3.5-10.8)
[2020-02-04 05:52] LABS: Albumin 3.7 g/dL (3.2-5.2); Albumin/Globulin Ratio 1.2 (1-3); BUN/Creatinine Ratio 48.6 (8-20); C Reactive Protein 12.5 mg/L (<8.01); Calcium 10.4 mg/dL (8.6-10.3); EGFR African American 58.3 (>60); EGFR Non-African American 48.2 (>60); Potassium 4.2 mmol/L (3.5-5.0); Total Bilirubin 0.3 mg/dL (0.2-1.0); Total Protein 6.7 g/dL (6.4-8.9)
[2020-02-04 06:52] LABS: Erythrocyte Sed Rate 25 mm/Hr (0-29)
[2020-02-04] MEDS: Aspirin EC 81 mg TAB.EC (enteric coated) PO SCH (08:43)
[2020-02-05] MEDS: Heparin 5000 UNITS/ML 1 mL VIAL SUBCUT SCH ×3 (05:36→21:12)
[2020-02-05] MEDS: Aspirin EC 81 mg TAB.EC (enteric coated) PO SCH (10:19)
[2020-02-06] MEDS: Heparin 5000 UNITS/ML 1 mL VIAL SUBCUT SCH ×3 (06:31→21:41)
[2020-02-06] MEDS: Aspirin EC 81 mg TAB.EC (enteric coated) PO SCH (08:32)
[2020-02-06] MEDS: Lidocaine 2% JELLY 6 ML TOPICAL PRN (21:42)
[2020-02-07] MEDS: Heparin 5000 UNITS/ML 1 mL VIAL SUBCUT SCH ×3 (05:37→21:57)
[2020-02-07] MEDS: Aspirin EC 81 mg TAB.EC (enteric coated) PO SCH (09:10)
[2020-02-07] MEDS: ISOPROPYL ALCOHOL OTIC PRN (21:57)
[2020-02-07] MEDS: GLYCERIN OTIC PRN (21:57)
[2020-02-08] MEDS: Heparin 5000 UNITS/ML 1 mL VIAL SUBCUT SCH ×3 (05:30→20:58)
[2020-02-08 05:54] LABS: ABS Basophils 0.1 10^3/ul (0-0.2); ABS Eosinophils 0.6 10^3/ul (0-0.6); ABS Lymphocytes 0.8 10^3/ul (1.0-4.8); ABS Monocytes 0.5 10^3/ul (0-0.8); ABS Neutrophils 2.7 10^3/ul (1.5-7.7); Eosinophil % 13.6 %; Hematocrit 29 % (35-47); Hemoglobin 9.7 g/dL (12.0-16.0); Lymphocyte % 16.5 %; Mean Corpuscular HGB Conc 34 g/dL (31-36); Mean Corpuscular Hemoglobin 31 pg (27-31); Mean Corpuscular Volume 92 fL (80-97); Mean Platelet Volume 7.6 fL (7.4-10.4); Nucleated Red Blood Cells % 0.1; Platelet Count 236 10^3/uL (150-450); Red Blood Count 3.08 10^6 /uL (3.70-4.87); Red Cell Distribution Width 18 % (10-15); White Blood Count 4.7 10^3/uL (3.5-10.8)
[2020-02-08 06:07] LABS: Albumin 3.6 g/dL (3.2-5.2); Albumin/Globulin Ratio 1.2 (1-3); BUN/Creatinine Ratio 48.7 (8-20); Calcium 10.4 mg/dL (8.6-10.3); EGFR Non-African American 46.3 (>60); Globulin 2.9 g/dL (2-4); Potassium 4.8 mmol/L (3.5-5.0); Total Bilirubin 0.3 mg/dL (0.2-1.0); Total Protein 6.5 g/dL (6.4-8.9)
[2020-02-08] MEDS: Aspirin EC 81 mg TAB.EC (enteric coated) PO SCH (09:32)
[2020-02-09] MEDS: Heparin 5000 UNITS/ML 1 mL VIAL SUBCUT SCH ×3 (05:27→21:37)
[2020-02-09] MEDS: Aspirin EC 81 mg TAB.EC (enteric coated) PO SCH (08:33)
[2020-02-09] MEDS ORDERED: Influenza VAC *QUAD* 2020-21* 0.5 ML SYRINGE IM ONE (09:00)
[2020-02-09] MEDS ORDERED: Lidocaine 2% JELLY 5 ML TUBE LIDO2GEL7 TOPICAL PRN (10:45)
[2020-02-10] MEDS: Heparin 5000 UNITS/ML 1 mL VIAL SUBCUT SCH ×3 (06:33→21:31)
[2020-02-10] MEDS: Aspirin EC 81 mg TAB.EC (enteric coated) PO SCH (08:11)
[2020-02-11] MEDS: Heparin 5000 UNITS/ML 1 mL VIAL SUBCUT SCH ×3 (06:14→21:42)
[2020-02-11] MEDS: Aspirin EC 81 mg TAB.EC (enteric coated) PO SCH (10:16)
[2020-02-12 05:33] VITALS: BP 106/60
[2020-02-12] MEDS: Heparin 5000 UNITS/ML 1 mL VIAL SUBCUT SCH (05:59)
[2020-02-12] MEDS: Aspirin EC 81 mg TAB.EC (enteric coated) PO SCH (08:40)
== END 2020-02-12 11:35 | disposition home health service (06) | DRG 289 ==
LOC: PMRU 12:41
PROVIDERS: ADMIT Physical Medicine & Rehabilitation; ATTEND Physical Medicine & Rehabilitation